=== PATIENT | female | born 1990 | race American Indian/Alaskan Native ===

== ENCOUNTER 2019-07-19 22:04 | Inpatient (IN) | payer OTHER ==
[2019-07-19] MEDS ORDERED: AMPICILLIN/NS 2 GM/100 ML 2 GM/100 ML BAG IV ONE (22:43)
[2019-07-19] MEDS ORDERED: BRETHINE SUB-Q PRN (22:43)
[2019-07-19] MEDS ORDERED: SUBLIMAZE IV PRN (22:43)
[2019-07-19] MEDS ORDERED: XYLOCAINE 2% INFILTRATI ONE (22:43)
[2019-07-19] MEDS ORDERED: MINERAL OIL PO PRN (22:43)
[2019-07-19] MEDS ORDERED: PITOCin/NS 30 UNIT/500ML 30 UNITS/500 ML BAG IV SCH (23:00)
--- NOTE | 2019-07-19 23:20 | History and Physical Report ---
History of Present Illness Date of examination: 07/19/19 Chief complaint: labor contractions History of present illness: EDC Calculations LMP: 07/11/2019 Past History : 3 Term Births: 2 Premature Births: 0 Living Children: 2 Para: 2 Mult. Births: 0 Prev : 0 Prev. attempt? none Aborta: 0 Elect. Ab: 0 Spont. Ab: 0 Ectopics: 0 # 1 Delivery date: 04/25/2014 Weeks Gestation: 39 Delivery type: Vaginal Anesthesia type: epidural Delivery location: [facility] Infant Sex: male weight: 6.44 # 2 Delivery date: 03/17/2015 Weeks Gestation: 39 Delivery type: Vaginal Anesthesia type: epidural Delivery location: 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 Abnormal PAP: negative LORENZA Exposure: negative Infertility: negative Uterine Anomaly: negative Uterine Surgery (not C/S): negative Other Gynecologic Problems: negative Social Hx: no tobacco, no EtOH, no drugs Infection History Hx of STD: chlamydia Varicella/Chicken Pox Status: Previous Disease Infection History Comments: chlamydia 2012 Genetic History Congenital Heart Defect: Mom: no Dad: no Sabina Disease: Mom: no Dad: no Thalassemia Mom: no Dad: no Neural Tube Defect Mom: no Dad: no Down's Syndrome Mom: no Dad: no Kameron-Sachs Mom: no Dad: no Sickle Cell Disease/Trait Mom: no Dad: no Hemophilia Mom: no Dad: no Muscular Dystrophy Mom: no Dad: no Cystic Fibrosis Mom: no Dad: no [place] Chorea Mom: no Dad: no Mental Retardation Mom: no Dad: no Fragile X Mom: no Dad: no Other Genetic/Chromosomal Disorder Mom: no Dad: no Child w/other defect Mom: no Dad: no Enviromental Exposures Xray Exposure: no Medication, drug, or alcohol use since LMP: no Chemical/Other Exposure: no Exposure to Cat Liter: no Hx of Parvovirus (Fifth Disease): no Occupational Exposure to Children: none Active Medications (reviewed today): METOCLOPRAMIDE HCL 10 MG ORAL TABLET (METOCLOPRAMIDE HCL) 1 po q6hr prn PLUS 27-1 MG ORAL TABLET ( VIT-FE FUMARATE-FA) 1 po daily Current Allergies (reviewed today): * SHELLFISH (Critical) Past History Past Medical History: other (see HPI) Past Surgical History: other (see HPI) 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 denies: smoking, alcohol abuse, prescription drug abuse, IV drug use - Obstetrical History Expected Date of Delivery: 07/11/19 Actual Gestation: 41 Week(s) 2 Day(s) : 3 Para: 2 Hx # Term Pregnancies: 2 Number of Pregnancies: 0 Spontaneous Abortions: 0 Induced : 0 Number of Living Children: 2 Medications and Allergies Allergies Allergy/AdvReac Type Severity Reaction Status Date / Time shellfish derived Allergy Unknown Unknown Verified 04/27/14 02:51 Home Medications Medication Instructions Recorded Confirmed Last Taken Type Pnv with Ca,No.72/Iron/FA 1 tab PO DAILY 04/24/14 03/17/15 1 Week Ago History [ Plus Tablet] ~03/10/15 Cetirizine HCl [ZyrTEC] 10 mg PO DAILY #30 capsule 10/11/16 Unknown Rx Fluticasone [Flonase] 1 spray NS QDAY #1 bottle 10/11/16 Unknown Rx Active Meds: Active Medications Ephedrine Sulfate (Ephedrine Sulfate) 10 mg IV Q2M PRN PRN Reason: Hypotension Fentanyl (Sublimaze) 100 mcg IV Q2H PRN PRN Reason: Labor Pain Oxytocin/Sodium Chloride (Pitocin/Ns 20 Unit/1000ml Drip) 20 units in 1,000 mls @ 125 mls/hr IV DIRECT PAPA Oxytocin/Sodium Chloride (Pitocin/Ns 30 Unit/500ml) 30 units in 500 mls @ 1 mls/hr IV TITR PAPA; Protocol Lactated Ringer's (Lactated Ringers) 1,000 mls @ 125 mls/hr IV DIRECT PAPA Ampicillin Sodium (Ampicillin/Ns 2 Gm/100 Ml) 2 gm in 100 mls @ 100 mls/hr IV ONCE ONE; Protocol Stop: 07/19/19 23:42 Ampicillin Sodium (Ampicillin/Ns 1 Gm/50 Ml) 1 gm in 50 mls @ 100 mls/hr IV Q4HR PAPA; Protocol Mineral Oil (Mineral Oil) 30 ml PO QHS PRN PRN Reason: Constipation Terbutaline Sulfate (Brethine) 0.25 mg SUB-Q ONCE PRN PRN Reason: Hyperstimulation/Hypertonicity Review of Systems All systems: negative - Vital Signs Vital signs: Vital Signs Temp Pulse Resp BP Pulse Ox 98.5 F 88 18 143/83 97 07/19/19 22:24 07/19/19 22:24 07/19/19 22:24 07/19/19 22:24 07/19/19 22:24 Temp Pulse Resp BP Pulse Ox 98.5 F 85 18 143/83 100 07/19/19 22:24 07/19/19 22:42 07/19/19 22:24 07/19/19 22:24 07/19/19 22:42 - Physical Exam Breasts: Positive: normal Cardiovascular: Regular rate Lungs: Positive: Clear to auscultation, Normal air movement Abdomen: Positive: normal appearance, soft Genitourinary (Female): Positive: normal external genitalia, normal perenium Vulva: both: normal Vagina: Positive: normal moisture Uterus: Positive: normal size, normal contour Anus/Rectum: Positive: normal perianal skin - Obstetrical FHR: category 2 Uterine Contraction Monitor Mode: External Cervical Dilatation: 5 (vertex) Cervical Effacement Percentage: 90 station: -2 Uterine Contraction Pattern: Regular Uterine Tone Measurement Phase: Contraction Uterine Contraction Intensity: Moderate Results Result Diagrams: 07/19/19 22:55 All other labs normal. Assessment and Plan 29y/o admitted for active labor @ 41+1 weeks. GBS negative. EFW 7#2oz in the office Saturday. Anticipate . IVF bolus started for epidural. Admission orders in EMR. - Patient Problems (1) 41 weeks gestation of Current Visit: Yes Status: Acute (2) Active labor Current Visit: No Status: Acute
[2019-07-19] MEDS: LACTATED RINGERS 1,000 ML IV SCH (23:24)
[2019-07-19 23:25] LABS: Hematocrit 35.6 % (30.3-42.9); Mean Corpuscular HGB Conc 34 % (30-34); Mean Corpuscular Volume 90 fl (79-97); Platelet Count 335 K/mm3 (140-440); Red Blood Count 3.94 M/mm3 (3.65-5.03); Red Cell Distribution Width 14.6 % (13.2-15.2)
[2019-07-19] MEDS ORDERED: ZOFRAN ONE (23:51)
[2019-07-20] MEDS ORDERED: ZOFRAN IV ONE (00:17)
[2019-07-20] MEDS ORDERED: NARCAN 2 MG/2 ML IV PRN (00:22)
[2019-07-20] MEDS ORDERED: fentaNYL-BUPIV 2 MCG/ML-0.125% 200 MCG/100 ML BAG EPIDURAL SCH (01:00)
[2019-07-20] MEDS: LACTATED RINGERS 1,000 ML IV SCH (01:00)
--- NOTE | 2019-07-20 01:08 | Anesthesia Consultation ---
Anesthesia Consult and Med Hx Date of service: 07/20/19 - Airway Anesthetic Teeth Evaluation: Poor ROM Head & Neck: Adequate Mental/Hyoid Distance: Adequate Mallampati Class: Class III Intubation Access Assessment: Probably Good - Pulmonary Exam CTA: Yes - Cardiac Exam Cardiac Exam: RRR - Pre-Operative Health Status ASA Pre-Surgery Classification: ASA3 Proposed Anesthetic Plan: Epidural - Pulmonary Hx Smoking: No Hx Asthma: No Hx Respiratory Symptoms: No SOB: No COPD: No Home Oxygen Therapy: No Hx Pneumonia: No Hx Sleep Apnea: No - Cardiovascular System Hx Hypertension: No Hx Coronary Artery Disease: No Hx Heart Attack/AMI: No Hx Angina: No Hx Percutaneous Transluminal Coronary Angioplasty (PTCA): No Hx Cardia Arrhythmia: No Hx Pacemaker: No Hx Internal Defibrillator: No Hx Valvular Heart Disease: No Hx Heart Murmur: No Hx Peripheral Vascular Disease: No - Central Nervous System Hx Neuromuscular Disorder: No Hx Seizures: No CVA: No Hx Back Pain: No Hx Psychiatric Problems: No - Gastrointestinal Hx Ulcer: No Hx Gastroesophageal Reflux Disease: Yes - Endocrine Hx Renal Disease: No Hx End Stage Renal Disease: No Hx Cirrhosis: No Hx Liver Disease: No Hx Insulin Dependent Diabetes: No Hx Non-Insulin Dependent Diabetes: No Hx Thyroid Disease: No Hx Hypothyroidism: No Hx Hyperthyroidism: No - Hematic Hx Anemia: No Hx Sickle Cell Disease: No - Other Systems Hx Alcohol Use: No Hx Substance Use: No Hx Cancer: No Hx Obesity: Yes (morbid obesity BMI 47.2)
[2019-07-20] MEDS: PITOCin/NS 20 UNIT/1000ML DRIP 20 UNITS/1,000 ML BAG IV SCH ×2 (02:00→03:24)
--- NOTE | 2019-07-20 02:30 | Procedure Note ---
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 Infant crying and vigorous thus baby was bulb suctioned and placed on mother's abd for skin to skin. 3 vessel cord clamped and cut after cessation of pulsation. Placenta del intact and complete. Pit to IVF. No lacerations to repair. EBL 300, apgars 8/9. mother and remain LDR stable. - A at 1 minute: 8 at 5 minutes: 9 Infant Gender: Male (6#15)
[2019-07-20] MEDS ORDERED: AMPICILLIN/NS 1 GM/50 ML 1 GM/50 ML BAG IV SCH (02:44)
[2019-07-20] MEDS ORDERED: DULCOLAX PR PRN (06:10)
[2019-07-20] MEDS ORDERED: BENADRYL PO PRN (06:10)
[2019-07-20] MEDS ORDERED: PHENERGAN PO PRN (06:10)
[2019-07-20] MEDS ORDERED: LANSINOH TP PRN (06:10)
[2019-07-20] MEDS ORDERED: TYLENOL PO PRN (06:10)
[2019-07-20] MEDS ORDERED: SODIUM CHLORIDE FLUSH SYRINGE 10 ML IV PRN (06:10)
[2019-07-20] MEDS ORDERED: DERMOPLAST TP PRN (06:10)
[2019-07-20] MEDS ORDERED: TUCKS PAD TP PRN (06:10)
[2019-07-20] MEDS ORDERED: PITOCin/NS 20 UNIT/1000ML DRIP 20 UNITS/1,000 ML BAG IV SCH (06:10)
[2019-07-20] MEDS ORDERED: MILK OF MAGNESIA PO PRN (06:10)
[2019-07-20] MEDS: COLACE PO SCH ×2 (11:02→22:04)
[2019-07-20] MEDS: IBUPROFEN PO SCH ×3 (11:02→17:12)
[2019-07-20] MEDS: PRENATAL VITAMIN PO SCH (11:02)
[2019-07-20 15:19] LABS: Hemoglobin 10.9 gm/dl (10.1-14.3)
[2019-07-21] MEDS: IBUPROFEN PO SCH ×2 (00:05→05:48)
[2019-07-21] MEDS ORDERED: BOOSTRIX IM ONE (06:00)
--- NOTE | 2019-07-21 06:04 | Discharge Summary ---
Providers - Providers Date of Admission: 07/20/19 00:09 Date of discharge: 07/21/19 (pt desires d/c) Attending physician: AGUSTIN HARDY Primary care physician: AGUSTIN HARDY Hospitalization Reason for admission: active labor Delivery: Episiotomy: none Laceration: none Incision: normal Other procedures: none complications: none Discharge diagnosis: IUP at term delivered [place] baby: male Hospital course: uncomplicated vaginal delivery Pt resting No c/o voiced VSS FF below umb Lochia scant Perineum intact H&H No s/sx of anemia Doing well s/p vag delivery P: d/c today with instructions RTO 4 weeks PP care Condition at discharge: Good Disposition: DC-01 TO HOME OR SELFCARE - Discharge Diagnoses (1) Spontaneous vaginal delivery Status: Acute Comment: RTO 4 weeks PP care Plan - Discharge Medications Prescriptions: Lidocain2.5%/Prilocai2.5% [Emla] 5 gm TP ONCE PRN #1 tube PRN Reason: Pain Ibuprofen [Motrin 800 MG tab] 800 mg PO Q8HR PRN #30 tablet PRN Reason: Pain - Provider Discharge Summary Activity: routine, no sex for 6 weeks, no heavy lifting 4 weeks, no strenuous exercise Diet: routine Instructions: routine Additional instructions: [] Smoking cessation referral if applicable(refer to patient education folder for contact #) [] Refer to [facility] Booklet Call your doctor immediately for: * Fever > 100.5 * Heavy vaginal bleeding ( >1 pad per hour) * Severe persistent headache * Shortness of breath * Reddened, hot, painful area to leg or breast * Drainage or odor from incision. * Keep incision clean and dry at all times and follow doctor's instructions regarding bathing/showering - Follow up plan Follow up: AGUSTIN HARDY MD [Primary Care Provider] - 7 Days (Congratulations! Please call [phone] to schedule your visit in 4 weeks and your son's circumcision in 1 week. Bring the EMLA cream with you to his visit. Do NOT use at home. Motrin/ibuprofen for pain/cramping. Call with concerns. [facility] [address] [facility] [address] [place], [place] [id number])
[2019-07-21] MEDS: PRENATAL VITAMIN PO SCH (10:21)
[2019-07-21] MEDS: COLACE PO SCH (10:21)
[2019-07-21 14:54] VITALS: BP 116/71
== END 2019-07-21 11:46 | disposition home or self-care (01) | DRG 775 ==
LOC: TRG 22:04 → LD 07-20 00:09 → OB 07-20 05:48
PROVIDERS: ADMIT Obstetrics & Gynecology; ATTEND Obstetrics & Gynecology
PROC: 10E0XZZ Delivery of Products of Conception, External Approach (ICD-10-PCS; principal; 2019-07-20)
PROC: 3E0R3BZ Introduction of Anesthetic Agent into Spinal Canal, Percutaneous Approach (ICD-10-PCS; 2019-07-20)
PROC: 00HU33Z Insertion of Infusion Device into Spinal Canal, Percutaneous Approach (ICD-10-PCS; 2019-07-20)
PROC: 3E0234Z Introduction of Serum, Toxoid and Vaccine into Muscle, Percutaneous Approach (ICD-10-PCS; 2019-07-21)
DX: O76 Abnormality in fetal heart rate and rhythm complicating labor and delivery (principal); Z3A.41 41 weeks gestation of pregnancy; Z37.0 Single live birth; Z23 Encounter for immunization; Z91.013 Allergy to seafood; O99.214 Obesity complicating childbirth; E66.01 Morbid (severe) obesity due to excess calories; O99.62 Diseases of the digestive system complicating childbirth; K21.9 Gastro-esophageal reflux disease without esophagitis; O77.0 Labor and delivery complicated by meconium in amniotic fluid
CPT/HCPCS: 36415; 85014; 85018; 85027; 86592; 86850; 86900; 86901; 88307; G0378; J0290; J2405; J2590; J7120